=== PATIENT | female | born 1990 | race Caucasian/White ===

== ENCOUNTER 2022-01-01 09:25 | Emergency (ER) | payer MEDICAID, OTHER ==
[~2022-01-01] VITALS: Ht 160 cm; Wt 85.9 kg
[~2022-01-01 09:25] MED LIST: ACET-3385 PO; IBUP-2070 PO; METF-444 PO
[2022-01-01 09:30] VITALS: BP 136/82
[2022-01-01 09:42] LABS: COVID AG,FIA SOURCE NASAL SWAB
== END 2022-01-01 10:18 | disposition home or self-care (01) ==
LOC: EMS 09:25
DX: Z20.822 Contact with and (suspected) exposure to COVID-19 (principal)
CPT/HCPCS: 99283

== ENCOUNTER 2022-02-18 14:50 | Emergency (ER) | payer OTHER ==
[~2022-02-18] VITALS: Ht 160 cm; Wt 82.3 kg
[2022-02-18 15:31] LABS: COVID AG,FIA SOURCE NASAL SWAB
[2022-02-18 16:06] VITALS: BP 121/77
== END 2022-02-18 16:11 | disposition home or self-care (01) ==
LOC: EMS 14:50
DX: Z20.822 Contact with and (suspected) exposure to COVID-19 (principal)
CPT/HCPCS: 99283